=== PATIENT | female | born 1955 | race Caucasian/White ===

== ENCOUNTER 2016-06-23 08:05 | Emergency (ER) | payer BC ==
[2016-06-23 08:18] VITALS: BP 196/98
[2016-06-23] MEDS ORDERED: Oxymetazoline 0.05% NASAL SPR* 15 ML BTL BOTH NARES ONE (08:28)
--- NOTE | 2016-06-23 08:29 | UC ---
Throat Pain/Nasal Nathan HPI - HPI Summary HPI Summary: 4 days of nasal congestion so bad that she has not been able to sleep, no fevers - History of Current Complaint Chief Complaint: UCGeneralIllness Stated Complaint: SINUS CONGESTION Time Seen by Provider: 06/23/16 08:13 Hx Obtained From: Patient Hx Last Menstrual Period: MENOPAUSE ?: No Onset/Duration: Gradual Onset, Lasting Days - 4, Still Present Severity: Moderate Pain Intensity: 6 Pain Scale Used: 0-10 Numeric Cough: None Associated Signs & Symptoms: Positive: Nasal Discharge - Congestion. Negative: Sinus Discomfort, Fever Related History: Smoking - she is not a smoker but lives with a smoker - Allergies/Home Medications Allergies/Adverse Reactions: Allergies Allergy/AdvReac Type Severity Reaction Status Date / Time No Known Allergies Allergy Verified 11/10/15 17:28 PMH/Surg Hx/FS Hx/Imm Hx Previously Healthy: No Endocrine History Of: Reports: Diabetes Denies: Thyroid Disease Cardiovascular History Of: Reports: Hypertension - "I always have it, I could not follow up with my provider. I owe Money" Denies: Cardiac Disorders Respiratory History Of: Denies: COPD, Asthma GI/ History Of: Denies: Ulcer - Surgical History Surgical History: Yes Surgery Procedure, Year, and Place: appendectomy 2010. BTL - Family History Known Family History: Positive: None Family History: denies cardiovascular issues in family lineage - Social History Occupation: Employed Full-time - At [employer] Lives: With Family Alcohol Use: None Substance Use Type: None Smoking Status (MU): Never Smoked Tobacco Have You Smoked in the Last Year: No - Immunization History Most Recent Influenza Vaccination: NEVER Hx Tetanus, Diphtheria Vaccination: No - unsure Review of Systems Constitutional: Fatigue - has not slept due to nasal congestion Skin: Negative Eyes: Negative ENT: Nasal Discharge - congestion Respiratory: Negative Cardiovascular: Negative Gastrointestinal: Negative Genitourinary: Negative Motor: Negative Neurovascular: Negative Musculoskeletal: Negative Neurological: Negative Psychological: Negative All Other Systems Reviewed And Are Negative: Yes Physical Exam Triage Information Reviewed: Yes Appearance: No Pain Distress, Ill-Appearing - appears older than stated age, Obese Vital Signs: Initial Vital Signs Temp 98.3 F 06/23/16 08:09 Pulse 88 06/23/16 08:09 Resp 16 06/23/16 08:09 BP 196/98 06/23/16 08:09 Pulse Ox 99 06/23/16 08:09 Vital Signs Reviewed: Yes Eye Exam: Normal Eyes: Positive: Conjunctiva Clear ENT Exam: Other ENT: Positive: Hearing grossly normal, Pharynx normal, Nasal congestion, TMs normal. Negative: Tonsillar swelling, Tonsillar exudate, Trismus, Muffled/ hoarse voice Neck exam: Normal Neck: Positive: Supple, Nontender, No Lymphadenopathy Respiratory Exam: Normal Respiratory: Positive: Chest non-tender, Lungs clear, Normal breath sounds, No respiratory distress, No accessory muscle use Cardiovascular Exam: Normal Cardiovascular: Positive: RRR, No Murmur, Pulses Normal, Brisk Capillary Refill Musculoskeletal Exam: Normal Musculoskeletal: Positive: Strength Intact, ROM Intact, No Edema Neurological Exam: Normal Neurological: Positive: Alert, Muscle Tone Normal Psychological Exam: Normal Skin Exam: Normal Re-Evaluation - Re-Evaluation First Eval Change: Improved - excellent relief of nasal congestion Throat Pain/Nasal Course/Dx - Course Assessment/Plan: DASH DIET, follow [facility] with for reevaluation of blood pressure and treatment---STOP SUDAFED, Start flonase - Differential Dx/Diagnosis Differential Diagnosis/HQI/PQRI: Otitis Media, Pharyngitis, Sinusitis, Tonsillitis, URI Provider Diagnoses: URI, Nasal COngestion, Chronic Hypertension Discharge - Discharge Plan Condition: Stable Disposition: HOME Prescriptions: Fluticasone NASAL SPRAY 50MCG* [Flonase NASAL SPRAY 50MCG*] 2 spray BOTH NARES DAILY #1 btl Patient Education Materials: Rhinosinusitis (ED), Chronic Hypertension (ED), DASH Eating Plan (ED), How to Use Nasal [place] (ED) Forms: *Work Release Referrals: [facility] [place] [facility] REFERRAL [Outside] - As Soon As Possible Non Staff,Doctor [Medical Doctor] - Additional Instructions: 1.Stop Advil and Tylenol Sinus These both have medications that will raise your blood pressure 2. Your blood pressure is high today. This may in part be due to the sudafed, however it is important you try some life style modification and medical treatment so you are not at such high risk for stroke and heart disease
[2016-06-23] MEDS ORDERED: Phenylephrine 0.5% NASAL* BTL ONE (08:33)
[2016-06-23] MEDS ORDERED: Phenylephrine 0.5% NASAL* BTL BOTH NARES ONE (08:34)
== END 2016-06-23 08:38 | disposition home or self-care (01) ==
LOC: UCEAST 08:05
DX: J06.9 Acute upper respiratory infection, unspecified (principal); R09.81 Nasal congestion; I10 Essential (primary) hypertension; E11.9 Type 2 diabetes mellitus without complications
CPT/HCPCS: 99212; A9270-GY; G0463

== ENCOUNTER 2019-03-11 13:59 | Emergency (ER) | payer BC ==
[2019-03-11 14:10] VITALS: BP 192/90
--- NOTE | 2019-03-11 15:12 | UC ---
Abdominal Pain Female HPI - HPI Summary HPI Summary: Patient is a 63yo female complaining of right anterolateral abdominal pain x2 days. States it is a sharp pain that occurs only when moving certain ways. Denies pain at rest. Has tried heating pads and aleve which have helped. Patient denies fever, chills, n/v/d. Denies flank pain. Denies urinary burning, frequency, and urgency. Denies abdominal pain. 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 Patient states she is aware of her high BP and is supposed to take BP meds but "doesn't like them or her doctor." - History of Current Complaint Chief Complaint: UCBackPain Stated Complaint: SIDE PAIN Hx Obtained From: Patient Hx Last Menstrual Period: MENOPAUSE Onset/Duration: Sudden Onset, Lasting Days Severity Currently: Mild Pain Intensity: 5 Allergies/Adverse Reactions: Allergies Allergy/AdvReac Type Severity Reaction Status Date / Time No Known Allergies Allergy Verified 03/11/19 14:10 Home Medications: Home Medications Glucosam/Chond/Hyalu/Cf Borate [Move Free Joint Health Tablet] 1 tab PO DAILY [History Confirmed 03/11/19] Ibuprofen TAB* [Advil TAB*] 400 mg PO Q4H PRN 03/11/19 [History Confirmed ] PMH/Surg Hx/FS Hx/Imm Hx Cardiovascular History: Hypertension - Surgical History Surgical History: Yes Surgery Procedure, Year, and Place: appendectomy 2009. BTL - Family History Known Family History: Positive: None Family History: denies cardiovascular issues in family lineage - Social History Alcohol Use: None Substance Use Type: None Smoking Status (MU): Never Smoked Tobacco Have You Smoked in the Last Year: No - Immunization History Most Recent Influenza Vaccination: NEVER Hx Tetanus, Diphtheria Vaccination: No - unsure Review of Systems All Other Systems Reviewed And Are Negative: Yes Constitutional: Positive: Negative. Negative: Fever, Chills, Fatigue Skin: Positive: Negative Respiratory: Positive: Negative. Negative: Shortness Of Breath, Cough Cardiovascular: Positive: Negative. Negative: Palpitations, Chest Pain Gastrointestinal: Positive: Abdominal Pain. Negative: Vomiting, Diarrhea, Nausea Genitourinary: Positive: Negative. Negative: Dysuria, Hematuria, Frequency, Urgency Musculoskeletal: Positive: Myalgia. Negative: Arthralgia, Decreased ROM, Edema Neurological: Negative: Paresthesia, Numbness Physical Exam Triage Information Reviewed: Yes Appearance: Well-Appearing, Well-Nourished, Pain Distress - pain distress noted when she attempted to get onto the exam table., Obese Vital Signs: Initial Vital Signs Temp 97.9 F 03/11/19 14:04 Pulse 90 03/11/19 14:04 Resp 18 03/11/19 14:04 BP 192/90 03/11/19 14:04 Pulse Ox 97 03/11/19 14:04 Lab Results 03/11/19 Range/Units 14:52 POC Urine Color Yellow POC Urine Clarity Clear POC Urine pH 6.0 (5-9) POC Ur Specif Martin <= 1.005 L (1.010-1.030) POC Urine Protein Negative (Negative) POC Ur Glucose (UA) Negative (Negative) POC Urine Ketones Negative (Negative) POC Urine Blood Trace-intact A (Negative) POC Urine Nitrite Negative (Negative) POC Urine Bilirubin Negative (Negative) POC Urine Urobilinogen 0.2 (Negative) POC U Leukocyte Esteras 1+ A (Negative) Vital Signs Reviewed: Yes Eyes: Positive: Conjunctiva Clear ENT: Positive: Hearing grossly normal Neck: Positive: Supple Respiratory Exam: Normal Respiratory: Positive: Chest non-tender, Lungs clear, Normal breath sounds, No respiratory distress Cardiovascular Exam: Normal Cardiovascular: Positive: RRR Abdomen Description: Positive: Nontender. Negative: CVA Tenderness (R), CVA Tenderness (L), Distended, Guarding Musculoskeletal: Positive: Strength Intact, ROM Intact, No Edema, Other: - no tenderness to palpation of abdominal muscles. pain noted to AROM of abdominal muscles Neurological: Positive: Alert Psychological: Positive: Age Appropriate Behavior Skin Exam: Normal - no ecchymosis Abd Pain Female Course/Dx - Course Course Of Treatment: Patient without urinary symptoms but has a positive UA. Treating patient for UTI with possibility that is what is causing her abdominal pain. Instructed her to continue with pain relief patches and aleve for possible muscle strain. Encouraged her to follow up with PCP for high BP. Patient voiced understanding and agreed to the treatment plan. - Differential Dx/Diagnosis Provider Diagnosis: Abdominal muscle strain, Elevated blood pressure reading in office with diagnosis of hypertension, UTI (urinary tract infection), uncomplicated Discharge ED - Sign-Out/Discharge Documenting (check all that apply): Patient Departure All imaging exams completed and their final reports reviewed: No Studies - Discharge Plan Condition: Stable Disposition: HOME Prescriptions: Sulfamethox/Trimethoprim DS* [Bactrim DS 800/160 TAB*] 1 tab PO BID #6 tab Patient Education Materials: Muscle Strain (ED), Urinary Tract Infection in Women (ED), Hypertension (ED) Referrals: [facility] [Outside] - If Needed [facility] [place]Outside] - As Soon As Possible Additional Instructions: As discussed, take Bactrim as prescribed for treatment of your UTI. You may continue with Salonpas patches and ibuprofen for relief of your side pain. Follow up with [facility] as listed below if your symptoms persist. Your blood pressure was also very elevated today and it is strongly encouraged that you follow up with your PCP or the Physician Referral as listed below as soon as possible for further evaluation. - Billing Disposition and Condition Condition: STABLE Disposition: Home - Attestation Statements Provider Attestation: I was available for consult. This patient was seen by the YONY. The patient was not presented to, seen by, or examined by me. -Angel
== END 2019-03-11 15:15 | disposition home or self-care (01) ==
LOC: UCEAST 13:59
DX: S39.011A Strain of muscle, fascia and tendon of abdomen, initial encounter (principal); I10 Essential (primary) hypertension; N39.0 Urinary tract infection, site not specified; X58.XXXA Exposure to other specified factors, initial encounter; Y92.9 Unspecified place or not applicable
CPT/HCPCS: 81003; 87086; 99212; G0463

== ENCOUNTER 2020-02-29 15:03 | Observation (INO) ==
[2020-02-29] MEDS ORDERED: hydrALAZINE 20 mg/ml 1 ML Vial IV IV SLOW PU ONE (15:35)
[2020-02-29 15:53] LABS: ABS Basophils 0.1 10^3/ul (0-0.2); ABS Eosinophils 0.1 10^3/ul (0-0.6); ABS Lymphocytes 1.1 10^3/ul (1.0-4.8); ABS Monocytes 0.5 10^3/ul (0-0.8); ABS Neutrophils 7.7 10^3/ul (1.5-7.7); Eosinophil % 0.5 %; Hematocrit 42 % (35-47); Lymphocyte % 11.8 %; Mean Corpuscular HGB Conc 34 g/dL (31-36); Mean Corpuscular Hemoglobin 30 pg (27-31); Mean Corpuscular Volume 89 fL (80-97); Mean Platelet Volume 7.3 fL (7.4-10.4); Platelet Count 280 10^3/uL (150-450); Red Blood Count 4.69 10^6 /uL (3.70-4.87); Red Cell Distribution Width 14 % (10-15); White Blood Count 9.5 10^3/uL (3.5-10.8)
[2020-02-29 16:12] LABS: ALT 21 U/L (7-52); AST 17 U/L (13-39); Albumin 3.8 g/dL (3.2-5.2); Albumin/Globulin Ratio 1.3 (1-3); Alkaline Phosphatase 67 U/L (34-104); Anion Gap 11 mmol/L (2-11); BUN/Creatinine Ratio 9.6 (8-20); Blood Urea Nitrogen 8 mg/dL (6-24); CO2 Carbon Dioxide 23 mmol/L (22-32); Calcium 8.6 mg/dL (8.6-10.3); Chloride 106 mmol/L (101-111); EGFR Non-African American 69.4 (>60); Glucose 212 mg/dL (70-100); Magnesium 1.8 mg/dL (1.9-2.7); Potassium 3.5 mmol/L (3.5-5.0); Sodium 140 mmol/L (135-145); Total Protein 6.8 g/dL (6.4-8.9)
[2020-02-29 16:17] LABS: Troponin I 0.04 ng/mL (<0.03)
[2020-02-29] MEDS ORDERED: Nitro 2% OINT (Nitroglycerin) 1 INCH/PAK TOPICAL ONE (16:34)
[2020-02-29] MEDS ORDERED: Iodixanol (CONTRAST) 320 MG/ML 100 ML SDV IV ONE (17:05)
[2020-02-29] MEDS ORDERED: hydrALAZINE 20 mg/ml 1 ML Vial IV IV SLOW PU PRN (17:21)
[2020-02-29] MEDS ORDERED: oxyCODONE/Acetamin 5/325 mg TAB PO PRN (17:22)
[2020-02-29] MEDS ORDERED: Al Hydrox/Mg Hydrox/Simet LIQ 30 ML UDC PO PRN (17:22)
[2020-02-29] MEDS ORDERED: Morphine 2 MG/ML SYRINGE IV PRN (17:22)
[2020-02-29] MEDS ORDERED: Metoprolol Tartrate 5 mg VIAL 5 ml VIAL (1 mg/ml) IV PRN ×2 (19:31→20:12)
[2020-02-29] MEDS ORDERED: Diltiazem IV push/loading dose 5 MG/ML 5 ML vial (25 mg) IV SLOW PU ONE (19:37)
[2020-02-29] MEDS ORDERED: VERAPAMIL 2.5 MG/ML 2 ML VIAL ** 5 mg/2 ml IV PUSH ONE ×2 (19:43→19:49)
[2020-02-29 20:03] LABS: Troponin I 0.04 ng/mL (<0.03)
[2020-02-29] MEDS: Heparin 5000 UNITS/ML 1 mL VIAL SUBCUT SCH (21:54)
[2020-02-29 22:36] LABS: Troponin I 0.03 ng/mL (<0.03)
[2020-03-01] MEDS: Heparin 5000 UNITS/ML 1 mL VIAL SUBCUT SCH ×2 (06:16→14:12)
[2020-03-01 06:44] LABS: ABS Eosinophils 0.1 10^3/ul (0-0.6); ABS Lymphocytes 1.6 10^3/ul (1.0-4.8); ABS Monocytes 0.5 10^3/ul (0-0.8); ABS Neutrophils 4.8 10^3/ul (1.5-7.7); Eosinophil % 1.9 %; Hematocrit 37 % (35-47); Hemoglobin 12.9 g/dL (12.0-16.0); Lymphocyte % 22.2 %; Mean Corpuscular HGB Conc 35 g/dL (31-36); Mean Corpuscular Hemoglobin 31 pg (27-31); Mean Corpuscular Volume 89 fL (80-97); Mean Platelet Volume 7.4 fL (7.4-10.4); Platelet Count 259 10^3/uL (150-450); Red Blood Count 4.19 10^6 /uL (3.70-4.87); Red Cell Distribution Width 14 % (10-15); White Blood Count 7.1 10^3/uL (3.5-10.8)
[2020-03-01 07:06] LABS: BUN/Creatinine Ratio 11.5 (8-20); Calcium 8.5 mg/dL (8.6-10.3); EGFR African American 90.3 (>60); EGFR Non-African American 74.6 (>60); HDL Cholesterol 41.2 mg/dL; Potassium 3.6 mmol/L (3.5-5.0)
[2020-03-01 07:58] LABS: C Reactive Protein 33.41 mg/L (<8.01)
[2020-03-01 10:11] LABS: Erythrocyte Sed Rate 24 mm/Hr (0-29)
[2020-03-01] MEDS ORDERED: Regadenoson 0.4 MG/5 ML SYRINGE ONE (10:19)
[2020-03-01 17:02] VITALS: BP 118/58
== END 2020-03-01 16:15 | disposition home or self-care (01) ==
LOC: ED 15:03 → MEDTELE 15:03
PROVIDERS: ADMIT Internal Medicine; ATTEND Internal Medicine